=== PATIENT | male | born 1990 ===

== ENCOUNTER 2019-09-06 18:20 | Emergency (ER) | payer OTHER ==
[~2019-09-06] VITALS: Ht 177.8 cm; Wt 77.3 kg
[2019-09-06 18:33] VITALS: BP 133/70
[2019-09-06] MEDS ORDERED: TETanus/Pertussis (Acell)/Diphther VAC/PF (Tdap-Adult) 0.5ml syringe IM ONE (19:25)
[2019-09-06] MEDS ORDERED: bacitracin 15gm ointment TP ONE (19:35)
[2019-09-06] MEDS ORDERED: BACI28.42 TOP (19:39)
== END 2019-09-06 20:01 | disposition home or self-care (01) ==
LOC: ER 18:20
DX: S61.210A Laceration without foreign body of right index finger without damage to nail, initial encounter (principal); Z79.899 Other long term (current) drug therapy; W45.8XXA Other foreign body or object entering through skin, initial encounter; Y93.89 Activity, other specified; Y92.69 Other specified industrial and construction area as the place of occurrence of the external cause; Y99.9 Unspecified external cause status
CPT/HCPCS: 90471; 99283